=== PATIENT | male | born 1945 | race Caucasian/White ===

== ENCOUNTER → 2022-10-31 | Outpatient (CLI) | payer MEDICARE, OTHER, SELFPAY ==
[2022-10-31 11:30] LABS: COVID19 -Nasal RAPID Negative (Negative)
--- NOTE | 2022-10-31 17:22 | DI.NM.S_ITS ---
DATE OF SERVICE: PROCEDURE: Exercise perfusion study. INDICATION: Coronary artery calcification with underlying hypertension, hyperlipidemia, history of tobacco abuse. RADIOPHARMACEUTICAL: 25.5 mCi technetium-99m Myoview IV was injected at stress and 12.6 mCi technetium-99m Myoview IV was injected at rest. CARDIAC STRESS: The patient underwent exercise perfusion study under the supervision of an attending staff. The patient walked on Abram protocol for 6 minutes and 45 seconds, achieved maximum heart rate of 123, which was 87 percent of target heart rate. Peak blood pressure 200/104 mmHg suggestive of hypertensive blood pressure response. Achieved 7 METs of workload. NAYA -3 percent. Baseline rhythm sinus with some nonspecific ST-T changes. During exercise and recovery, there was less than 1-mm upsloping ST depression in inferolateral leads. The patient also has frequent PACs and short bursts of atrial tachycardia without any obvious atrial fibrillation or ventricular tachycardia. No anginal symptoms. He felt fatigue. RAW DATA: There is increased subdiaphragmatic activity. GATED STUDY: Stress LV ejection fraction is 76 percent without any obvious wall motion abnormalities. Resting end-diastolic volume 81 mL. TID ratio 0.88, which is within normal limits. Lung/heart ratio 0.22, which is within normal limits. MYOCARDIAL PERFUSION SCAN: Stress supine and resting supine images revealed a small- to moderate-sized, mildly decreased perfusion of base to mid inferior wall extending into the basal inferior septum, which got completely resolved during stress prone images suggestive of diaphragmatic tissue attenuation artifact. Stress prone images revealed normal myocardial perfusion. CONCLUSION: This is a normal myocardial perfusion study without any obvious ischemia or infarction with evidence of diaphragmatic tissue attenuation artifact, which got resolved during stress prone images. The summed stress score is zero. Fair exercise tolerance. Functional aerobic impairment -3 percent. Hypertensive blood pressure response. No ischemic symptoms. Baseline repolarization changes without any convincing ischemic changes. Frequent premature atrial contractions without any obvious atrial fibrillation or ventricular tachycardia. Left ventricular function is preserved. Overall low- risk exercise myocardial perfusion study. Michael Donnie - HUMBERTO/ross/JASON doc#: [id number]/job#: [id number] dd: 10/31/2022 16:47:00 dt: 10/31/2022 17:14:00 DICTATING MD/COPIES TO: Randal Ambrosio MD COPIES MNE: KEITH;
== END ==
LOC: NUCM 10:11
PROVIDERS: Referring Provider Internal Medicine Cardiovascular Disease; Visit Provider Internal Medicine Cardiovascular Disease
DX: I25.10 Atherosclerotic heart disease of native coronary artery without angina pectoris (principal); I10 Essential (primary) hypertension; E78.2 Mixed hyperlipidemia; R06.02 Shortness of breath; I49.3 Ventricular premature depolarization; R07.2 Precordial pain; R94.31 Abnormal electrocardiogram [ECG] [EKG]; K22.9 Disease of esophagus, unspecified; R35.1 Nocturia; D64.9 Anemia, unspecified; Z20.822 Contact with and (suspected) exposure to COVID-19; Z87.891 Personal history of nicotine dependence
CPT/HCPCS: 78452; 87635; 93017; A9502

== ENCOUNTER → 2024-03-03 07:49 | Outpatient (CLI) | payer MEDICARE, OTHER, SELFPAY ==
--- NOTE | 2024-03-03 07:50 | DI.RAD.S_ITS ---
PROCEDURE: XR LUMBAR SPINE MIN 4V INDICATIONS: low back pain TECHNIQUE: 5 views of the lumbar spine were acquired, including bilateral oblique views. COMPARISON: None. FINDINGS: Bones: Convex right thoracolumbar scoliosis. Diffuse disc space narrowing and hypertrophic facet joints present particularly in the lower lumbar spine Soft tissues: Atherosclerotic calcification in the abdominal aorta noted without evidence of aneurysm. Oblique images: No pars defects. IMPRESSION: Degenerative disc disease, arthropathy and thoracolumbar dextroscoliosis Approved by: Serjio Darling M.D. on 03/03/2024 at 18:15
== END ==
PROVIDERS: Referring Provider Anesthesiology; Visit Provider Anesthesiology
DX: M51.36 Other intervertebral disc degeneration, lumbar region (principal); M47.816 Spondylosis without myelopathy or radiculopathy, lumbar region; M41.9 Scoliosis, unspecified; M54.50 Low back pain, unspecified
CPT/HCPCS: 72110